=== PATIENT | female | born 1955 | race Caucasian/White ===

== ENCOUNTER 2017-08-10 09:39 | Outpatient (CLI) | payer OTHER ==
[~2017-08-10 09:39] MED LIST: Iopamidol 370 76% 100 ML VIAL ONE
--- NOTE | 2017-08-10 12:09 | CT ---
CT CHEST WITH IV CONTRAST CT ABDOMEN WITH ORAL AND IV CONTRAST CT PELVIS WITH ORAL AND IV CONTRAST: Date: 08/10/17 HISTORY: Malignant neoplasm of left kidney. Patient on chemotherapy for past 8 months. IV CONTRAST: 99 mL [id number]. COMPARISON: CT chest and abdomen dated 05/22/17 from [facility]. FINDINGS: Mediastinal and hilar lymphadenopathy are stable with the enlarged subcarinal lymph node measuring 15 .0 mm in short axis. Numerous bilateral pulmonary nodules are again seen with interval increase in nu mber. A small right and moderate left pleural effusion are noted. There has been interval increase in the size of the small left pleural effusion since the last exam. Adjacent infiltrates/atelectatic ch anges are present. A tiny pericardial effusion is noted, which is new. The liver, spleen, pancreas, and right kidney appear normal. No calcified gallstones are seen. The left inferior pole renal mass currently measures 4.0 x 4.5 x 6.0 cm (previously 5.0 x 4.0 x 6.5 c m). Interval development of left paraaortic lymphadenopathy has occurred. Bilateral adrenal masses ar e stable. No free air or free fluid is seen in the abdomen. No aneurysmal dilatation of the thoracoabdominal ao rta is seen. The small bowel loops are not abnormally dilated. The expansile lytic lesion involving the medial left 8th rib with associated destructive change invol ving the T7 and T8 vertebral bodies laterally is larger measuring 7.7 x 3.5 x 4.9 cm. The lytic lesio n in the T8 vertebral body is unchanged. No new osseous lesions are identified. IMPRESSION: Overall worsening of metastatic disease since 05/22/17. POS: [facility]
--- NOTE | 2017-08-11 07:13 | CT ---
PRE AND POSTCONTRAST ENHANCED CT IMAGES OF BRAIN: Date: 08/10/17 HISTORY: C64.2. FINDINGS: Pre and postcontrast enhanced CT images of the brain demonstrate the brain to be unremarkable. No slim dence of intracranial masses, hemorrhages, strokes, or contusions seen. Ventricles are of normal size . IMPRESSION: Normal CT brain. POS: [facility]
== END 2017-08-10 09:40 | disposition home or self-care (01) ==
LOC: SCSCT 09:39
PROVIDERS: ATTEND Internal Medicine Hematology & Oncology
DX: C64.2 Malignant neoplasm of left kidney, except renal pelvis (principal); C79.51 Secondary malignant neoplasm of bone
CPT/HCPCS: 70470; 71260; 74177

== ENCOUNTER 2017-10-08 19:20 | Emergency (ER) | payer OTHER ==
[2017-10-08 20:00] LABS: #Basophils 0.1 thou/uL (0.0-0.2); #Lymphocytes 1.4 thou/uL (1.20-3.40); #Monocytes 0.8 thou/uL (0.11-0.59); #Neutrophils 5.3 thou/uL (1.40-6.50); %Basophils 0.8 % (0.0-1.0); %Eosinophils 0.6 % (0.0-10.0); %Lymphocytes 18.8 % (21.0-51.0); %Monocytes 10.1 % (0.0-10.0); %Neutrophils 69.8 % (42.0-75.0); Hemoglobin 11.2 g/dL (12.0-16.0); Mean Corpuscular HGB CONC 31.4 g/dL (32.0-36.0); Mean Corpuscular Hemoglobin 28.2 pg (27.0-31.0); Mean Corpuscular Volume 89.8 fl (81.0-99.0); Mean Platelet Volume 9.1 fL (7.4-10.4); Platelet Count 121 thou/uL (130-400); RBC Distribution Width 16.2 % (11.5-14.5); Red Blood Cell (RBC) Count 3.98 mill/uL (4.20-5.40); White Blood Cell (WBC) Count 7.6 thou/uL (4.8-10.8)
[2017-10-08 20:22] LABS: ALT (SGPT) 14 U/L (8-55); AST (SGOT) 28 U/L (5-34); Albumin 3.6 g/dL (3.4-4.8); Alkaline Phosphatase 165 U/L (40-150); Anion Gap 16 mmol/L (10-20); BUN (Urea Nitrogen) 22 mg/dL (9.8-20.1); Bilirubin, Total 0.6 mg/dL (0.2-1.2); CK (CPK) 57 U/L (29-168); Calc. Creatinine Clearance 0 mL/min (70-130); Carbon Dioxide 29 mmol/L (23-31); Chloride 96 mmol/L (98-107); Estimated GFR-MDRD 73; Globulin 3.4 g/dL (2.4-3.5); Glucose 145 mg/dL (80-115); Sodium 138 mmol/L (136-145)
[2017-10-08 20:25] LABS: CKMB 1.5 ng/mL (0-6.6); Potassium 2.7 mmol/L (3.5-5.1); Troponin I 0.033 ng/mL (< 0.028)
--- NOTE | 2017-10-08 20:45 | RAD ---
RADIOGRAPH CHEST FRONTAL VIEW: Indication: Dyspnea. FINDINGS: There is marked enlargement of the cardiac silhouette and pulmonary vasculature with bilateral pleura l effusions. Interstitial opacities indicate edema. IMPRESSION: Evidence of decompensated CHF with vascular congestion, pulmonary edema, and bilateral pleural fluid. Recommend continued follow up to resolution. POS: [facility]
[2017-10-08] MEDS ORDERED: Potassium Bicarbonate/Cit Ac 25 MEQ TAB ONE (20:56)
[2017-10-08] MEDS ORDERED: Furosemide 40 MG/4 ML VIAL ONE (21:13)
--- NOTE | 2017-10-14 17:05 | EKG ---
Test Reason : SOB Blood Pressure : / mmHG Vent. Rate : 114 BPM Atrial Rate : 114 BPM P-R Int : 116 ms QRS Dur : 068 ms QT Int : 290 ms P-R-T Axes : 029 -16 075 degrees QTc Int : 399 ms Sinus tachycardia Low voltage QRS Inferior infarct , age undetermined Cannot rule out Anteroseptal infarct , age undetermined T wave abnormality, consider lateral ischemia Abnormal ECG Confirmed by BETTY ALBERTO D.O. ([id number]), newspaper editor MELL WOOD ([id number]) on 10/14/2017 5:04:28 PM Referred By: SAMMY Confirmed By:BETTY ALBERTO D.O.
== END 2017-10-08 21:30 | disposition home or self-care (01) ==
LOC: ERS 19:20
DX: I11.0 Hypertensive heart disease with heart failure (principal); I50.9 Heart failure, unspecified; E87.6 Hypokalemia; J45.909 Unspecified asthma, uncomplicated; M19.90 Unspecified osteoarthritis, unspecified site; Z79.891 Long term (current) use of opiate analgesic; Z79.899 Other long term (current) drug therapy
CPT/HCPCS: 36415; 71045; 80053; 82550; 82553; 83880; 84484; 85025; 93005; 94760; 96374; J1940

== ENCOUNTER 2017-10-14 19:05 | Inpatient (IN) | payer OTHER ==
[~2017-10-14 19:05] MED LIST changes: +ISOVUE-370 76%-LOCM 1 ML ONE; -Iopamidol 370 76% 100 ML VIAL ONE
[2017-10-14 19:45] LABS: #Eosinphils 0.1 thou/uL (0.0-0.7); #Lymphocytes 1.6 thou/uL (1.20-3.40); #Monocytes 1.2 thou/uL (0.11-0.59); #Neutrophils 5.9 thou/uL (1.40-6.50); %Basophils 0.4 % (0.0-1.0); %Eosinophils 0.6 % (0.0-10.0); %Lymphocytes 18.2 % (21.0-51.0); %Monocytes 13.7 % (0.0-10.0); %Neutrophils 67.1 % (42.0-75.0); Hemoglobin 11.2 g/dL (12.0-16.0); Mean Corpuscular HGB CONC 30.4 g/dL (32.0-36.0); Mean Corpuscular Hemoglobin 26.9 pg (27.0-31.0); Mean Corpuscular Volume 88.3 fl (81.0-99.0); Mean Platelet Volume 9.4 fL (7.4-10.4); Platelet Count 122 thou/uL (130-400); Red Blood Cell (RBC) Count 4.17 mill/uL (4.20-5.40); White Blood Cell (WBC) Count 8.7 thou/uL (4.8-10.8)
[2017-10-14] MEDS ORDERED: Fentanyl 100 MCG/2 ML VIAL ONE (19:56)
[2017-10-14 20:06] LABS: ALT (SGPT) 12 U/L (8-55); AST (SGOT) 23 U/L (5-34); Albumin 3.6 g/dL (3.4-4.8); Alkaline Phosphatase 155 U/L (40-150); Anion Gap 10 mmol/L (10-20); BUN (Urea Nitrogen) 24 mg/dL (9.8-20.1); Bilirubin, Total 0.7 mg/dL (0.2-1.2); Calc. Creatinine Clearance 0 mL/min (70-130); Calcium 9.2 mg/dL (7.8-10.44); Carbon Dioxide 33 mmol/L (23-31); Chloride 97 mmol/L (98-107); Estimated GFR-MDRD 63; Glucose 190 mg/dL (80-115); Lipase 48 U/L (8-78); Magnesium 1.5 mg/dL (1.6-2.6); Potassium 4.3 mmol/L (3.5-5.1); Protein, Total 6.6 g/dL (6.0-8.3); Sodium 136 mmol/L (136-145)
[2017-10-14 20:10] LABS: CKMB 1.4 ng/mL (0-6.6); Troponin I 0.035 ng/mL (< 0.028)
[2017-10-14 20:17] LABS: Bilirubin Negative (Negative); Blood, Urine Small (Negative); Clarity CLOUDY (Clear); Glucose, Urine (Dipstick) Negative (Negative); Leukocyte Negative (Negative); Nitrite Negative (Negative); Protein, Urine (Dipstick) 100 mg/dL (Neg-Trace); Specific Gravity, Urine 1.021 (1.002-1.036); Urobilinogen 0.2 mg/dL (0.2-1.0); pH, Urine 6.5 (5.0-9.0)
[2017-10-14 20:18] LABS: Bacteria/HPF Rare-Few HPF (None Seen); Hyaline Casts/LPF 4-6 HYALINE CAST LPF (0-3 Hyaline); Pathc Cast-AUWi Flag 1.76 (0-2.49); WBC/HPF 0-3 HPF (0-3)
--- NOTE | 2017-10-14 20:25 | RAD ---
PORTABLE CHEST: 10/14/17 HISTORY: Shortness of breath. COMPARISON: 10/08/17. Cardiomegaly with vascular congestion. Interstitial edema. Bilateral effusions. Nodularity throughout both lung bishop. IMPRESSION: Congestive changes which do not appear significantly changed from 10/08/17. POS: [facility]
--- NOTE | 2017-10-14 21:12 | CT ---
CT PULMONARY ANGIO OF CHEST WITH CONTRAST: 10/14/17 Multiple axial tomograms obtained through the chest following pulmonary angio protocol with multiplan ar reconstruction and 3D postprocessing. HISTORY: Shortness of breath, chest pain. FINDINGS: There is cardiomegaly with vascular congestion. Interstitial prominence is seen consistent with inter stitial edema. There are moderate sized bilateral pleural effusions. Pulmonary arteries are well opacified. There is no evidence of pulmonary edema. No evidence of thorac ic aortic dissection. There is a moderate sized pericardial effusion. Review of the lung bishop reveal numerous pulmonary nodules scattered throughout both lungs which are too numerous to count. These numerous small nodules range in size from 2 to 3 mm up to 1.0 cm. Findi ngs would suggest diffuse pulmonary metastasis. There are patchy areas of nodular infiltrate in both upper lobes which may represent superimposed inf lammatory infiltrate. Alternatively this may represent areas of asymmetric edema. Review of the osseous structures reveal lytic process involving the thoracic spine. There is a large lytic lesion involving the T7 vertebrae to the right of midline with extension into the pedicle and e vidence of soft tissue component which extends into the epidural space on the right. There is a large lytic process involving the left aspect of the T8 vertebra with involvement of the p edicle. There is a large soft tissue component at this site encroaching into the epidural space and d estroying the posterior left eighth rib. This soft tissue component measures 5 to 6 cm AP dimension x up to 8 cm width in the axial plain. IMPRESSION: 1. No evidence of pulmonary embolus. 2. Cardiomegaly with vascular congestion and interstitial edema. 3. Moderate sized bilateral pleural effusions. 4. Moderate sized pericardial effusion. 5. Numerous pulmonary nodules throughout both lungs consistent with pulmonary metastases. 6. Lytic lesions involving the thoracic spine consistent with metastatic deposits. There is a la rge soft tissue component involving the T8 vertebra on the left with destruction of the T8 vertebra a nd the posterior left eighth rib with encroachment into the spinal canal. 7. Some patchy nodular infiltrative changes in the upper lobes could represent a superimposed in fectious process. POS: [facility]
[2017-10-14 21:20] LABS: Actual Bicarbonate (HCO3a) 27.7 mEq/L (22-26); Base Excess (BEa) 3.6 mEq/L (0 (+/-) 2.5); CO2 Tension 40.4 mmHg (35.0-45.0); O2 Tension (PaO2) 102.7 mmHg (80.0-100.0); pH, Arterial 7.46 (7.35-7.45)
[2017-10-14 21:21] LABS: Calcium, Ionized 1.1 mmol/L (1.12-1.30); Hematocrit-ABG 35.9 % (36.0-47.0); Hemoglobin (Hb) 10.3 g/dL (12.0-16.0)
[2017-10-14 21:22] LABS: Analyzer IN Cardio ER; Puncture Site RRA
[2017-10-14] MEDS ORDERED: Ondansetron ODT 4 MG TAB PO PRN (21:39)
[2017-10-14] MEDS ORDERED: Ondansetron HCl/PF 4 MG/2 ML Vial IVP PRN (21:39)
[2017-10-14] MEDS ORDERED: Acetaminophen 325 MG TAB PO PRN (21:39)
[2017-10-14] MEDS ORDERED: Milk Of Magnesia 30 ML UDCUP PO PRN (21:39)
[2017-10-14] MEDS ORDERED: Furosemide 40 MG/4 ML VIAL ONE (21:46)
[2017-10-15] MEDS ORDERED: Metoprolol Tartrate 5 MG/5 ML VIAL IVP SCH (00:30)
[2017-10-15] MEDS ORDERED: Metoprolol Tartrate 5 MG/5 ML VIAL IVP PRN (00:30)
[2017-10-15] MEDS ORDERED: HYDROcodone/Acetaminophen 10/325 mg Tablet PO PRN (00:32)
[2017-10-15] MEDS ORDERED: Dextrose 5% in Water 1,000 ML IV PRN (00:32)
[2017-10-15] MEDS ORDERED: HumaLOG 300 UNITS/3 ML VIAL SC PRN (00:32)
[2017-10-15] MEDS ORDERED: Dextrose 50% Abboject 50 ML SYRINGE SLOW IVP PRN (00:32)
[2017-10-15 02:42] LABS: Troponin I 0.034 ng/mL (< 0.028)
[2017-10-15] MEDS ORDERED: Adenosine 6 MG/2 ML VIAL ONE ×2 (03:51→07:32)
[2017-10-15] MEDS ORDERED: Lorazepam 2 MG/ML VIAL SLOW IVP SCH (05:45)
[2017-10-15] MEDS ORDERED: Furosemide 40 MG/4 ML VIAL SLOW IVP SCH (06:00)
--- NOTE | 2017-10-15 06:03 | PDOC.EVN ---
Event Note - Event Note Event Note: Patient's heart rate was persistently in the 190s. Monitors and EKG showed possible SVT. Valsavers maneuvers were unsuccessful. She does not qans any aggressive or heroic measures but agreed to a trial of one dose of adenosine, which temporarily converted her to sinus rhythm with HR in the 90s. However she went back to being tachycardic (HR 180-190). She declined further intervention and stated she wanted to be made comfortable.
[2017-10-15] MEDS ORDERED: Digoxin 0.5 MG/2 ML AMP SLOW IVP SCH (06:30)
[2017-10-15] MEDS ORDERED: Vancomycin HCl 1.25 GM in Sodium Chloride 0.9% 250 ML 250 ML IVPB SCH (06:45)
[2017-10-15] MEDS: Furosemide 20 MG/2 ML VIAL SLOW IVP SCH ×2 (07:18→13:52)
[2017-10-15 08:32] LABS: #Lymphocytes 1.4 thou/uL (1.20-3.40); #Monocytes 1.2 thou/uL (0.11-0.59); #Neutrophils 6.4 thou/uL (1.40-6.50); %Basophils 0.3 % (0.0-1.0); %Eosinophils 0.3 % (0.0-10.0); %Lymphocytes 15.2 % (21.0-51.0); %Monocytes 13.1 % (0.0-10.0); %Neutrophils 71.1 % (42.0-75.0); Mean Corpuscular HGB CONC 30.8 g/dL (32.0-36.0); Mean Corpuscular Hemoglobin 27.1 pg (27.0-31.0); Mean Corpuscular Volume 88.2 fl (81.0-99.0); Mean Platelet Volume 9.7 fL (7.4-10.4); Platelet Count 112 thou/uL (130-400); RBC Distribution Width 16.9 % (11.5-14.5); Red Blood Cell (RBC) Count 4.05 mill/uL (4.20-5.40)
[2017-10-15 08:47] LABS: Anion Gap 15 mmol/L (10-20); BUN (Urea Nitrogen) 23 mg/dL (9.8-20.1); Calc. Creatinine Clearance 37 mL/min (70-130); Calcium 8.9 mg/dL (7.8-10.44); Carbon Dioxide 28 mmol/L (23-31); Chloride 98 mmol/L (98-107); Estimated GFR-MDRD 74; Glucose 157 mg/dL (80-115); Potassium 3.7 mmol/L (3.5-5.1); Sodium 137 mmol/L (136-145)
[2017-10-15 08:53] LABS: Troponin I 0.051 ng/mL (< 0.028)
[2017-10-15] MEDS: Enoxaparin Sodium 40 MG/0.4 ML SYRINGE SC SCH (09:12)
[2017-10-15] MEDS: Potassium Chloride 20 MEQ TAB PO SCH (09:13)
[2017-10-15] MEDS: Magnesium Oxide 400 MG TAB PO SCH ×2 (09:13→20:41)
[2017-10-15] MEDS: Docusate 100 MG CAP PO SCH ×2 (09:13→20:41)
[2017-10-15] MEDS: Hydrochlorothiazide 25 MG TAB PO SCH (09:14)
[2017-10-15] MEDS: Vancomycin HCl 500 MG in Sodium Chloride 0.9% 100 ML IVPB SCH (10:33)
--- NOTE | 2017-10-15 11:27 | PDOC.PN ---
- Subjective Encounter Start Date: 10/15/17 Encounter Start Time: 11:20 Subjective: f/u for SVT requiring Adenosine, Metoprolol and Digoxin. Rate remains -: in low 100's. No new complaints. Admitted for CP with significant hx -: end-stage metastatic renal cell carcinoma. - Objective Resuscitation Status: Resuscitation Status DNR:Do Not Resuscitate MAR Reviewed: Yes Vital Signs & Weight: Vital Signs (12 hours) Temp Pulse Resp BP Pulse Ox 10/15/17 08:00 97.2 F L 106 H 18 92/55 L 99 10/15/17 07:19 105 H 10/15/17 04:10 98.1 F 105 H 22 H 106/65 98 10/15/17 00:44 147 H 20 119/77 98 10/15/17 00:00 97.5 F L 147 H 20 98 10/14/17 23:33 97.5 F L 117 H 21 H 135/86 98 Weight Weight 70 lb 9.6 oz I&O: 10/14/17 10/15/17 10/16/17 06:59 06:59 06:59 Intake Total 355.5 Output Total 600 Balance -244.5 Result Diagrams: 10/15/17 08:18 10/15/17 08:18 Additional Labs: Laboratory Tests 10/14/17 10/14/17 10/14/17 19:38 19:38 19:38 Creatinine 0.91 Magnesium 1.5 L Troponin I 0.035 H B-Natriuretic Peptide 367.5 H 10/15/17 10/15/17 02:03 08:18 Creatinine Magnesium Troponin I 0.034 H 0.051 H B-Natriuretic Peptide Radiology Reviewed by me: Yes (CT chest - extensive mets lungs, T-spine, ribs) EKG Reviewed by me: Yes (Tele - Sinus tach in low-100's) Phys Exam - Physical Examination ill-appearing, lethargic, answers questions HEENT: PERRLA, oral pharynx no lesions Neck: no JVD, supple diminished in bases tachycardic Gastrointestinal: soft, non-tender, no distention, positive bowel sounds Musculoskeletal: pulses present, edema present Neurological: normal sensation, moves all 4 limbs Psychiatric: A&O x 3 Skin: normal turgor, cap refill <2 seconds Dx/Plan (1) SVT (supraventricular tachycardia) Code(s): I47.1 - SUPRAVENTRICULAR TACHYCARDIA Status: Acute Comment: Improved after receiving Adenosine, Metoprolol and Digoxin IV, start Digoxin 0.125mg po daily, follow clinically (2) Chest pain Code(s): R07.9 - CHEST PAIN, UNSPECIFIED Status: Acute Comment: Multifactorial in addition to #1, improved (3) Malignant pleural effusion Code(s): J91.0 - MALIGNANT PLEURAL EFFUSION Status: Acute Comment: Subacute , supportive mgmt (4) Pericardial effusion Code(s): I31.3 - PERICARDIAL EFFUSION (NONINFLAMMATORY) Status: Chronic Comment: See above, supportive mgmt (5) Metastatic renal cell carcinoma to bone Code(s): C79.51 - SECONDARY MALIGNANT NEOPLASM OF BONE; C64.9 - MALIGNANT NEOPLASM OF UNSP KIDNEY, EXCEPT RENAL PELVIS Status: Chronic Comment: End- stage process, consult Hospice for evaluation, pt agrees to proceed (6) Chronic respiratory failure with hypoxia Code(s): J96.11 - CHRONIC RESPIRATORY FAILURE WITH HYPOXIA Status: Chronic Comment: Continue O2 supplementation - Plan plan discussed w/ family, continue antibiotics, social work nurse, respiratory therapy, out of bed/ambulate, DVT proph w/SCDs Continue supportive care -: Pt wishing to pursue Hospice care -: Add Digoxin 0.125mg po daily -: OOB with assistance -: Continue Lasix 20mg IV q12h * Likely home 10/16/17 with Hospice
[2017-10-15] MEDS: HYDROcodone/Acetaminophen 10/325 mg Tablet PO PRN ×2 (14:01→20:40)
[2017-10-15] MEDS: Digoxin 0.125 MG TAB PO SCH (14:01)
--- NOTE | 2017-10-15 16:34 | HP ---
PRIMARY CARE PHYSICIAN: Dr. Yaw Sexton PRESENTING COMPLAINTS: Shortness of breath. HISTORY OF PRESENT ILLNESS: A 62-year-old female with a history of metastatic renal carcinoma, who p resented to the emergency room with sudden shortness of breath, which started around 5:00 p.m. today. She usually uses 3 liters of oxygen at home, but has noticed worsening shortness of breath associat ed with stabbing chest pain 9/10, which is left sided. It did not radiate, not associated with fever s or chills. She has no nausea, vomiting, or diarrhea. She does not have any other abdominal or uri nary symptoms. She reports some lower extremity edema, which she states has been chronic, but has go tten worse recently. About 7 days ago, she was seen at emergency room for numbness in her left hand and some shortness of breath. She was diagnosed with CHF exacerbation. She reports compliance with her medications. PAST MEDICAL HISTORY: Chronic respiratory failure, on 2 liters of home oxygen; renal cell carcinoma with metastases to the lungs and bones; asthma; bronchiectasis; hypertension; GERD; diverticulitis; v ertigo. PAST SURGICAL HISTORY: Bilateral knee surgery, hysterectomy, tonsillectomy. ALLERGIES: CODEINE, PENICILLINS, ANTIDEPRESSANTS. FAMILY HISTORY: Reviewed and noncontributory. SOCIAL HISTORY: Does not drink alcohol, smoke cigarettes, or use illicit drugs. REVIEW OF SYSTEMS: Constitutional: Denies fevers or chills. HEENT: Denies any changes in vision. Cardiovascular: Per HPI. Respiratory: Per HPI. GI: Negative. Genitourinary: Negative. Muscul oskeletal: Negative. Skin: Negative. Neurologic: Negative. Hematologic/lymphatic negative. All ergy/immunology negative. PHYSICAL EXAMINATION: VITAL SIGNS: Reviewed. The patient was afebrile, but she was tachycardic and hypertensive with dysp meagan. GENERAL: She is alert and well oriented. HEENT: Normocephalic. Mass in the occiput tender to touch. NECK: Full range of movement. Supple. RESPIRATORY: Decreased breath sounds bilaterally. CARDIOVASCULAR: S1 and S2 only. No murmurs, rubs, or gallops. Slightly tachycardic. ABDOMEN: Bowel sounds positive, no tenderness, no distention, no organomegaly. MUSCULOSKELETAL: Edema 3+ in bilateral lower extremities up to the knees. NEUROLOGIC: Alert and well oriented. No focal deficits. SKIN: Warm, dry, well-perfused. PSYCHIATRIC: Normal mood and affect. LABORATORY DATA: Sodium 136, potassium , chloride 97, carbon dioxide 33, anion gap 10, BUN 24, creatinine 0.91, glucose 190, calcium 9.2, magnesium 1.5, troponin 0.35. BNP 367. Hematology largel y unremarkable. D-dimer 2.9. ABG with pH of 7.46, pCO2 of 102, pCO2 of 40. Urinalysis largely unre markable and the patient is asymptomatic. CTA chest showed no pulmonary embolism, but showed cardiom egaly with vascular congestion and interstitial edema with moderate-sized bilateral pleural effusions , moderate-sized pericardial effusion, and numerous pulmonary nodules throughout both lungs consisten t with pulmonary metastasis. Also, shows some patchy nodular infiltrative changes in the upper lobes , which could represent a superimposed infectious process. ASSESSMENT/PLAN: 1. Bilateral pleural effusions, likely from metastasis. Blood cultures have been taken and the luke ent has been started on broad-spectrum antibiotics. We will follow up on the cultures. CT chest als o revealed possible infiltrates that could be due to superimposed infection. 2. Acute on chronic respiratory failure, unclear what the true etiology is, as this could be from ma lignant pleural effusions, pneumonia, or new onset congestive heart failure. She has been started on antibiotics. Cultures have been taken and we will start her on low-dose Lasix. We will hold off on Cardiology consult for now, as the patient states she is considering hospice care. She was supposed to meet with hospice on Monday and request for hospice consultation. I would like to see them in morning. 3. Hypertension. We will monitor blood pressure closely and start her home medications as tolerated .
[2017-10-15] MEDS ORDERED: Lorazepam 0.5 MG TAB PO SCH (20:45)
[2017-10-16] MEDS: Furosemide 20 MG/2 ML VIAL SLOW IVP SCH ×2 (05:43→14:51)
[2017-10-16] MEDS: HYDROcodone/Acetaminophen 10/325 mg Tablet PO PRN ×2 (09:50→15:01)
[2017-10-16] MEDS: Hydrochlorothiazide 25 MG TAB PO SCH (09:51)
[2017-10-16] MEDS: Potassium Chloride 20 MEQ TAB PO SCH (09:51)
[2017-10-16] MEDS: Vancomycin HCl 500 MG in Sodium Chloride 0.9% 100 ML IVPB SCH (09:51)
[2017-10-16] MEDS: Digoxin 0.125 MG TAB PO SCH (09:51)
[2017-10-16] MEDS: Docusate 100 MG CAP PO SCH (09:51)
[2017-10-16] MEDS: Enoxaparin Sodium 40 MG/0.4 ML SYRINGE SC SCH (09:52)
[2017-10-16] MEDS: Magnesium Oxide 400 MG TAB PO SCH (09:52)
[2017-10-16 13:42] VITALS: BMI 28.4
[2017-10-16 16:19] VITALS: BP 106/66; TEMP 96.9
--- NOTE | 2017-10-17 01:55 | DIS ---
DATE OF ADMISSION: 10/14/2017 DATE OF DISCHARGE: 10/16/2017 DISCHARGE DIAGNOSES: 1. Supraventricular tachycardia, improved. 2. Chest pain secondary to supraventricular tachycardia, improved. 3. Malignant pleural effusion, chronic. 4. Pericardial effusion secondary to malignancy. 5. Metastatic renal cell carcinoma with bone involvement. 6. Chronic hypoxic respiratory failure with oxygen supplementation at 2 liters per minute by nasal c annula. 7. Chronic normocytic anemia. CONSULTATIONS: [facility]. PERTINENT LABORATORY AND X-RAY FINDINGS: Magnesium level 1.5. Troponin I ranged between 0.034-0.051 . BNP 368, previously noted 320 on 10/08/2017. CBC showed a hemoglobin of 11, hematocrit 36. Blood cultures x2 dated 10/14/2017 showed no growth at 48 hours. Urine culture dated 10/14/2017 showed 50 ,000 to 75,000 colonies of mixed skin bere. Portable chest x-ray dated 10/14/2017 showed bilateral pleural effusions with interstitial edema. CT angiogram of the chest dated 10/14/2017 showed no evid ence of pulmonary embolus. Vascular prominence and interstitial edema. Moderate sized bilateral ple ural effusions. Moderate sized pericardial effusion. Numerous pulmonary nodules consistent with pul monary metastatic process. Lytic lesions involving the thoracic spine consistent with metastasis. D estruction of the T8 vertebra and posterior left eighth rib consistent with metastasis. HOSPITAL COURSE: The patient was admitted to the telemetry unit after initially presenting with shor tness of breath in the context of known metastatic renal cell carcinoma with bone involvement. The p atient on chronic oxygen supplementation at 2-3 liters per minute by nasal cannula with known bilater al pleural effusions confirmed with CT imaging of the chest as stated previously. The patient was in itially given IV Lasix and increased oxygen supplementation to maintain O2 saturations. The patient was also noted with supraventricular tachycardia on telemetry monitoring requiring adenosine, metopro lol, and digoxin for rate control. Likely, the patient's presentation is consistent with consequence s of bilateral pleural effusion and pericardial effusions. The patient's overall rate improved in th e low 100s and the patient was given IV Lasix throughout the hospital course. The patient was also g iven empiric IV antibiotics after questionable infiltrate concerning for pneumonia. No specific evid ence of infectious process with negative blood cultures and urine culture showing mixed skin bere. Due to the patient's comorbid status and underlying metastatic renal cell carcinoma, the patient opte d to pursue comfort and palliative measures through hospice care. The patient is transitioning to [facility] on discharge at home, 10/16/2017. DISCHARGE MEDICATIONS: 1. Digoxin 0.125 mg p.o. daily. 2. Hydrochlorothiazide 25 mg p.o. daily. 3. [place] 10/325 mg 1 to 2 tabs p.o. q.6 hours p.r.n. pain. 4. Magnesium oxide 400 mg p.o. b.i.d. 5. K-Dur 20 mEq p.o. daily. FOLLOWUP: The patient will follow up with [facility] at home followed by Dr. Lawrence cosby. CONDITION ON DISCHARGE: Guarded. ACTIVITY: Ad pancho. DIET: Regular. CODE STATUS: Do not resuscitate. DISPOSITION: Home with [facility], 10/16/2017. Total time preparing and coordinating discharge is 38 minutes.
--- NOTE | 2017-10-18 16:46 | EKG ---
Test Reason : Blood Pressure : / mmHG Vent. Rate : 151 BPM Atrial Rate : 151 BPM P-R Int : 000 ms QRS Dur : 074 ms QT Int : 330 ms P-R-T Axes : 000 -03 073 degrees QTc Int : 523 ms Sinus tachycardia with short PA Low voltage QRS Cannot rule out Inferior infarct (cited on or before 08-OCT-2017) Cannot rule out Anterior infarct (cited on or before 08-OCT-2017) T wave abnormality, consider lateral ischemia Abnormal ECG Confirmed by TAINA ORDOÑEZ ([id number]) on 10/18/2017 4:46:31 PM Referred By: KARTHIK Confirmed By:TAINA ORDOÑEZ
--- NOTE | 2017-10-21 15:14 | EKG ---
Test Reason : Blood Pressure : / mmHG Vent. Rate : 118 BPM Atrial Rate : 118 BPM P-R Int : 000 ms QRS Dur : 068 ms QT Int : 434 ms P-R-T Axes : 000 022 109 degrees QTc Int : 608 ms Sinus tachycardia Low voltage QRS Cannot rule out Anterior infarct , age undetermined Abnormal ECG Long QT Confirmed by MOI RUBIN ([id number]), editorial specialist LOLLY GUZMAN ([id number]) on 10/21/2017 3:13:23 PM Referred By: Confirmed By:MOI RUBIN
== END 2017-10-16 16:37 | disposition hospice, home (50) | DRG 542 ==
LOC: ERS 19:05 → 2NO 23:08
PROVIDERS: ADMIT Internal Medicine; ATTEND Internal Medicine
DX: C79.51 Secondary malignant neoplasm of bone (principal); J96.21 Acute and chronic respiratory failure with hypoxia; J91.0 Malignant pleural effusion; I11.0 Hypertensive heart disease with heart failure; C64.9 Malignant neoplasm of unspecified kidney, except renal pelvis; D64.9 Anemia, unspecified; I47.1 Supraventricular tachycardia; I31.3 Pericardial effusion (noninflammatory); Z99.81 Dependence on supplemental oxygen; Z51.5 Encounter for palliative care; Z66 Do not resuscitate; K21.9 Gastro-esophageal reflux disease without esophagitis
CPT/HCPCS: 36415; 71045; 71275; 80048; 80053; 81003; 81015; 82248; 82553; 82805; 83615; 83690; 83735; 83880; 84100; 84484; 84550; 85025; 85379; 87040; 87086; 93005; 93010; 96361; 96374; 96375; A4216; J0153; J1160; J1650; J1940; J1956; J2060; J3010; J3370; J7050